=== PATIENT | female | born 1995 | race Caucasian/White ===

== ENCOUNTER 2016-07-25 16:15 | Outpatient (CLI) ==
[2013-08-28 06:52] VITALS: BMI 31.3
== END 2016-07-25 16:16 | disposition home or self-care (01) ==
LOC: LAB 16:15
PROVIDERS: ATTEND Nurse Practitioner Family
DX: J02.9 Acute pharyngitis, unspecified (principal)
CPT/HCPCS: 87651; 87880

== ENCOUNTER 2016-08-05 19:43 | Emergency (ER) ==
[2016-08-05 19:51] VITALS: BP 125/69; TEMP 98.8; BMI 34.4
[2016-08-05] MEDS ORDERED: TORADOL IM STA (20:00)
--- NOTE | 2016-08-05 20:03 | ED.PDOC ---
General ED Provider: Dr. CAMRYN RUBALCAVA Chief Complaint: Fall Stated Complaint: while getting out of the pool, she slipped and hurt rt knee and skin all got scratched up. Time Seen by Physician: 20:01 Mode of Arrival: Walk-In Information Source: Patient Primary Care Provider: LANA MARKS Nursing and Triage Documentation Reviewed and Agree: Yes Musculoskeletal Complaint Exam - Knee Pain Complaint/Exam Mechanism of Injury: Reports: Trauma Symptoms Are: Still present Onset of Pain: Reports: Immediate Initial Severity: Moderate Current Severity: Moderate Location: Reports: Discrete Character: Reports: Aching Alleviating: Reports: None Aggravating: Reports: Movement, Weight bearing Associated Signs and Symptoms: Reports: Swelling, Redness, Fever. Denies: Bruising, Weakness, Numbness, Tingling Able to Bear Weight: Yes Septic Arthritis Risk Factors: Reports: None Gout Risk Factors: Reports: None Knee Findings: Present: Erythema Differential Diagnoses: Cellulitis, Closed Fracture, Sprain Review of Systems - Review Of Systems Constitutional: Reports: No symptoms Eyes: Reports: No symptoms Ears, Nose, Mouth, Throat: Reports: No symptoms Respiratory: Reports: No symptoms Cardiac: Reports: No symptoms GI: Reports: No symptoms : Reports: No symptoms Musculoskeletal: Reports: Joint pain Skin: Reports: Bruising Neurological: Reports: No symptoms Endocrine: Reports: No symptoms Hematologic/Lymphatic: Reports: No symptoms All Other Systems: Reviewed and Negative Past Medical History - Past Medical History Previously Healthy: Yes Endocrine: Reports: None Cardiovascular: Reports: None Respiratory: Reports: None Hematological: Reports: None Gastrointestinal: Reports: None Genitourinary: Reports: None Neuro/Psych: Reports: None Musculoskeletal: Reports: None Cancer: Reports: None Last Menstrual Period: 1.5 weeks ago - Surgical History General Surgical History: Reports: None - Family History Family History: Reports: None - Social History Smoking Status: Never smoker Hx Substance Use: No Alcohol Screening: None - Immunizations Tetanus Shot up to Date: Yes Physical Exam - Physical Exam Appearance: Well-appearing, No pain distress, Well-nourished Eyes: LINDA, EOMI, Conjunctiva clear ENT: Ears normal, Nose normal, Oropharynx normal Respiratory: Airway patent, Breath sounds clear, Breath sounds equal, Respirations nonlabored Cardiovascular: RRR, Pulses normal, No rub, No murmur GI/: Soft, Nontender, No masses, Bowel sounds normal, No Organomegaly Musculoskeletal: Normal strength, ROM intact, No edema, No calf tenderness Skin: Warm, Dry, Normal color Neurological: Sensation intact, Motor intact, Reflexes intact, Cranial nerves intact, Alert, Oriented Psychiatric: Affect appropriate, Mood appropriate Interpretation - Radiology Interpretation Radiology Interpretation By: Radiologist Radiology Results: Negative Critical Care Note - Critical Care Note Total Time (mins): 0 Course - Course Orders, Labs, Meds: Orders Category Date Time Status Ketorolac Tromethamine [Toradol] MEDS 08/05/16 20:00 Discontinued 60 mg IM ONCE STA KNEE, RIGHT 4 VIEWS Stat RADS 08/05/16 19:58 Completed TIBIA/FIBULA, RIGHT 2 VIEW Stat RADS 08/05/16 19:58 Completed Medications Discontinued Medications Generic Name Dose Route Start Last Admin Trade Name Freq PRN Reason Stop Dose Admin Ketorolac Tromethamine 60 mg 08/05/16 20:00 08/05/16 20:34 Toradol IM 08/05/16 20:01 60 mg ONCE STA Administration Vital Signs: Temp Pulse Resp BP Pulse Ox 08/05/16 19:45 98.8 F 100 H 20 125/69 97 Departure - Departure Time of Disposition: 20:44 Disposition: HOME SELF-CARE Discharge Problem: Right knee sprain Qualifiers: Encounter type: initial encounter Involved ligament of knee: other ligament Qualifier Code: (S83.8X1A) Sprain of other specified parts of right knee, initial encounter Cellulitis Qualifiers: Site of cellulitis: extremity Site of cellulitis of extremity: lower extremity Laterality: right Qualifier Code: (L03.115) Cellulitis of right lower limb Instructions: Cellulitis (ED) Condition: Stable Pt referred to PMD for follow-up: No Additional Instructions: Tylenol prn rest f/u in [facility] Prescriptions: Clindamycin HCl 300 mg PO TID #15 capsule Allergies/Adverse Reactions: Allergies nickel Allergy (Severe, Verified 08/05/16 19:51) rash No Known Drug Allergies Adverse Reaction (Verified 08/05/16 19:51) metal Allergy (Severe, Uncoded 08/05/16 19:51) rash Home Medications: Ambulatory Orders Clindamycin HCl 300 mg PO TID #15 capsule 08/05/16 Disposition Discussed With: Patient, Family
--- NOTE | 2016-08-05 20:26 | DI ---
Exam: Right tibia and fibula two-view HISTORY: Inury and pain Findings / impression: No bony abnormality is seen. No surrounding soft tissue abnormality. Negat magdalene exam.
--- NOTE | 2016-08-05 20:41 | DI ---
Exam: Right knee four view HISTORY: Right knee pain post traumatic Findings / Impression: No significant bony or articular abnormality. No significant surrounding so ft tissue abnormality. Negative exam.
== END 2016-08-05 21:00 | disposition home or self-care (01) ==
LOC: ED 19:43
DX: S83.8X1A Sprain of other specified parts of right knee, initial encounter (principal); L03.115 Cellulitis of right lower limb; W01.10XA Fall on same level from slipping, tripping and stumbling with subsequent striking against unspecified object, initial encounter
CPT/HCPCS: 96372; 99283